=== PATIENT | male | born 1950 | race Asian ===

== ENCOUNTER 2021-07-15 06:02 | Day surgery (SDC) | payer OTHER ==
[~2021-07-15] VITALS: Ht 165.1 cm; Wt 59.1 kg
[2021-07-15] MEDS ORDERED: BENZOCAINE 20% 50 MCG/SPRAY 57 GM TP ONE (06:03)
[2021-07-15] MEDS ORDERED: LIDOCAINE 2% 30 ML JELLY TP ONE (06:03)
[2021-07-15] MEDS ORDERED: ALBUTEROL SULFATE 2.5 MG/0.5 ML NEB SOLUTION NEB ONE (06:03)
[2021-07-15] MEDS ORDERED: SODIUM CHLORIDE 0.9% 1,000 ML ONE (06:08)
[2021-07-15] MEDS ORDERED: SODIUM CHLORIDE 0.9% 1,000 ML IV ONE (07:00)
[2021-07-15 07:01] LABS: COVID AG,FIA SOURCE NASOPHARYNGEAL
[2021-07-15 07:21] LABS: GLUCOMETER DEV NAME(LOC) SDS.; GLUCOSE,POINT OF CARE 152 MG/DL (70-110)
[2021-07-15] MEDS ORDERED: FentaNYL CITRATE PF 100 MCG/2 ML VIAL ONE (07:46)
[2021-07-15] MEDS ORDERED: MIDAZOLAM HCL 5 MG/ML VIAL ONE (07:46)
[2021-07-15] MEDS ORDERED: MethylPREDNISolone SOD SUCC 125 MG/2 ML VIAL ONE (09:08)
[2021-07-15] MEDS ORDERED: MethylPREDNISolone SOD SUCC 125 MG/2 ML VIAL IVP ONE (09:15)
[2021-07-15] MEDS ORDERED: OXYGEN THERAPY IH SCH (20:00)
== END 2021-07-15 10:45 | disposition home or self-care (01) ==
LOC: SURGERY 06:02
PROVIDERS: ATTEND Internal Medicine Critical Care Medicine
DX: J38.4 Edema of larynx (principal); B37.0 Candidal stomatitis; E78.00 Pure hypercholesterolemia, unspecified; I10 Essential (primary) hypertension; M19.90 Unspecified osteoarthritis, unspecified site; J43.9 Emphysema, unspecified; F03.90 Unspecified dementia, unspecified severity, without behavioral disturbance, psychotic disturbance, mood disturbance, and anxiety; I69.351 Hemiplegia and hemiparesis following cerebral infarction affecting right dominant side; Z79.899 Other long term (current) drug therapy; Z87.891 Personal history of nicotine dependence; Z98.890 Other specified postprocedural states
CPT/HCPCS: 31623; 31624; 71045; 82962; 87015; 87070; 87101; 87205; 87206; 87220; 87426; 88108; 88184; 88185; 88312; C9803; J2250; J2930; J3010; J7030; J7613